=== PATIENT | female | born 1990 | race Two or more races ===

== ENCOUNTER 2022-09-19 17:01 | Emergency (ER) | payer MEDICAID, OTHER ==
[~2022-09-19] VITALS: Ht 180.3 cm; Wt 55.6 kg
[2022-09-19 17:15] VITALS: BP 127/91
[2022-09-19 17:54] LABS: Basophils # (auto) 0.1 10 ^3/uL (0-0.2); Basophils % (auto) 1.2 % (0.0-2.0); Eosinophils # (auto) 0 10 ^3/uL (0-0.8); Eosinophils % (auto) 0.5 % (0.0-7.0); Hematocrit 42.3 % (36.0-46.0); Hemoglobin 14.3 g/dL (12.2-16.2); Lymphocytes # (auto) 1.9 10 ^3/uL (0.4-5.4); Lymphocytes % (auto) 18.1 % (10.0-50.0); Mean Corpuscular Hemoglobin 29.4 pg (28.0-32.0); Mean Corpuscular Hgb Conc. 33.9 g/dL (32.0-36.0); Mean Corpuscular Volume 86.6 fL (80.0-100.0); Monocytes # (auto) 0.9 10 ^3/uL (0-1.3); Monocytes % (auto) 8.6 % (0.0-12.0); Neutrophils # (auto) 7.7 10 ^3/uL (1.6-8.6); Neutrophils % (auto) 71.6 % (37.0-80.0); Nucleated Red Blood Cells % 0.1 %; Red Blood Cells 4.88 10^6/uL (4.0-5.20); Red Cell Distribution Width 15.9 % (11.8-14.3); White Blood Cell 10.7 10^3/uL (4.4-10.8)
[2022-09-19 17:59] LABS: Urine Bacteria NONE SEEN /hpf (None Seen); Urine Blood Negative /uL (Negative); Urine Specific Gravity 1.031 (1.001-1.035); Urine WBC 2 /hpf (0 - 5)
[2022-09-19 18:21] LABS: BUN/Creatinine Ratio 26.6; Calcium 8.3 mg/dL (8.5-10.1); Potassium 4.1 mmol/L (3.5-5.1)
[2022-09-19 18:22] LABS: Alcohol, Urine < 3.0 mg/dL (0-10); Amphetamine Screen, Urine NEGATIVE (NEGATIVE); Barbiturate Scree,Urine NEGATIVE (NEGATIVE); Benzodiazephine Screen, Urine NEGATIVE (NEGATIVE); Cannabinoid Screen, Urine POSITIVE (NEGATIVE); Cocaine Screen, Urine NEGATIVE (NEGATIVE); Phencyclidine Screen, Urine NEGATIVE (NEGATIVE)
[2022-09-19 18:24] LABS: Bilirubin, Total 0.5 mg/dL (0.2-1.0); Total Protein 8.5 g/dL (6.4-8.2)
[2022-09-19 18:34] LABS: Opiate Scree,Urine NEGATIVE (NEGATIVE)
== END 2022-09-19 23:13 | disposition home or self-care (01) ==
LOC: ER 17:01
DX: E11.65 Type 2 diabetes mellitus with hyperglycemia (principal); I10 Essential (primary) hypertension; R10.2 Pelvic and perineal pain
CPT/HCPCS: 36415; 80053; 80307; 81001; 81025; 82010; 82962; 84702; 85025; 93005

== ENCOUNTER 2022-09-25 22:57 | Emergency (ER) | payer MEDICAID ==
[~2022-09-25] VITALS: Ht 175.3 cm; Wt 50.0 kg
[2022-09-25 23:59] VITALS: BP 135/93
[2022-09-26 00:49] LABS: Basophils # (auto) 0.1 10 ^3/uL (0-0.2); Eosinophils # (auto) 0.1 10 ^3/uL (0-0.8); Eosinophils % (auto) 1.1 % (0.0-7.0); Hematocrit 40.3 % (36.0-46.0); Hemoglobin 13.5 g/dL (12.2-16.2); Lymphocytes # (auto) 2.9 10 ^3/uL (0.4-5.4); Lymphocytes % (auto) 26.4 % (10.0-50.0); Mean Corpuscular Hemoglobin 28.7 pg (28.0-32.0); Mean Corpuscular Hgb Conc. 33.5 g/dL (32.0-36.0); Mean Corpuscular Volume 85.8 fL (80.0-100.0); Monocytes # (auto) 1.1 10 ^3/uL (0-1.3); Monocytes % (auto) 10.3 % (0.0-12.0); Neutrophils # (auto) 6.8 10 ^3/uL (1.6-8.6); Neutrophils % (auto) 61.2 % (37.0-80.0); Nucleated Red Blood Cells % 0.2 %; Red Cell Distribution Width 15.1 % (11.8-14.3); White Blood Cell 11.1 10^3/uL (4.4-10.8)
[2022-09-26 01:01] LABS: Albumin 2.1 g/dL (3.4-5.0); BUN/Creatinine Ratio 28.6; Calcium 9.3 mg/dL (8.5-10.1); Potassium 3.5 mmol/L (3.5-5.1)
[2022-09-26 01:04] LABS: Bilirubin, Total 0.4 mg/dL (0.2-1.0); Total Protein 9.1 g/dL (6.4-8.2)
[2022-09-26 01:37] LABS: Urine Bacteria NONE SEEN /hpf (None Seen); Urine Blood Negative /uL (Negative); Urine Specific Gravity 1.025 (1.001-1.035); Urine WBC 1 /hpf (0 - 5)
[2022-09-26 02:15] LABS: Alcohol, Urine < 3.0 mg/dL (0-10); Amphetamine Screen, Urine NEGATIVE (NEGATIVE); Barbiturate Scree,Urine NEGATIVE (NEGATIVE); Benzodiazephine Screen, Urine NEGATIVE (NEGATIVE); Cannabinoid Screen, Urine POSITIVE (NEGATIVE); Cocaine Screen, Urine NEGATIVE (NEGATIVE); Opiate Scree,Urine NEGATIVE (NEGATIVE); Phencyclidine Screen, Urine NEGATIVE (NEGATIVE)
[2022-09-26] MEDS ORDERED: ACETAMINOPHEN 325 MG TAB PO ONE (03:00)
== END 2022-09-26 04:29 | disposition home or self-care (01) ==
LOC: EDBD 22:57 → ER 22:57
DX: E08.621 Diabetes mellitus due to underlying condition with foot ulcer (principal); I10 Essential (primary) hypertension; R10.2 Pelvic and perineal pain
CPT/HCPCS: 36415; 80053; 80307; 81001; 82010; 82962; 84702; 85025

== ENCOUNTER 2022-10-25 19:56 | Emergency (ER) | payer MEDICAID ==
[~2022-10-25] VITALS: Ht 180.3 cm; Wt 51.6 kg
[2022-10-25] MEDS ORDERED: SODIUM CHLORIDE 0.9% 1,000 ML IV ONE (21:00)
[2022-10-25] MEDS ORDERED: InsuLIN REG 1unit/0.01ml Soln (100units/ml) IV ONE (21:15)
[2022-10-25 21:49] LABS: Basophils # (auto) 0.2 10 ^3/uL (0-0.2); Basophils % (auto) 1.6 % (0.0-2.0); Eosinophils # (auto) 0.1 10 ^3/uL (0-0.8); Eosinophils % (auto) 1.4 % (0.0-7.0); Hematocrit 38.3 % (36.0-46.0); Hemoglobin 13.1 g/dL (12.2-16.2); Lymphocytes # (auto) 2.9 10 ^3/uL (0.4-5.4); Lymphocytes % (auto) 30.3 % (10.0-50.0); Mean Corpuscular Hemoglobin 28.3 pg (28.0-32.0); Mean Corpuscular Hgb Conc. 34.2 g/dL (32.0-36.0); Mean Corpuscular Volume 82.8 fL (80.0-100.0); Monocytes # (auto) 0.4 10 ^3/uL (0-1.3); Monocytes % (auto) 4.3 % (0.0-12.0); Neutrophils # (auto) 5.9 10 ^3/uL (1.6-8.6); Neutrophils % (auto) 62.4 % (37.0-80.0); Nucleated Red Blood Cells % 0.1 %; Red Blood Cells 4.63 10^6/uL (4.0-5.20); Red Cell Distribution Width 14.2 % (11.8-14.3); White Blood Cell 9.5 10^3/uL (4.4-10.8)
[2022-10-25 22:07] LABS: Albumin 2.5 g/dL (3.4-5.0); BUN/Creatinine Ratio 28.3 (10.0-20.0); Calcium 8.4 mg/dL (8.5-10.1); Potassium 3.7 mmol/L (3.5-5.1)
[2022-10-25 22:19] LABS: Bilirubin, Total 0.2 mg/dL (0.2-1.0); Total Protein 7.6 g/dL (6.4-8.2)
[2022-10-25] MEDS ORDERED: INSU1INJ30 SC (23:21)
[2022-10-25 23:35] VITALS: BP 115/68
== END 2022-10-25 23:38 | disposition home or self-care (01) ==
LOC: ER 19:56
DX: E11.65 Type 2 diabetes mellitus with hyperglycemia (principal); I10 Essential (primary) hypertension; F12.10 Cannabis abuse, uncomplicated
CPT/HCPCS: 36415; 80053; 82010; 82962; 85025; 96361; 96374; 99283; J1815; J7030